=== PATIENT | female | born 2000 | race Caucasian/White ===

== ENCOUNTER 2022-01-09 07:41 | Emergency (ER) | payer MEDICAID ==
[~2022-01-09] VITALS: Ht 167.6 cm; Wt 59.0 kg
--- NOTE | 2022-01-09 08:41 | RAD ---
EXAMINATION: Right ankle radiograph. VIEWS: 3 COMPARISON: None INDICATION:21 years, Female, pain medial aspect after blunt trauma. FINDINGS: No acute fracture, dislocation or subluxation. Ankle mortise and talar dome are intact. No soft tissu e swelling or joint effusion. IMPRESSION: No acute osseous process. Electronically signed by: Maikol Martinez MD (01/09/2022 8:39 AM) [facility]
--- NOTE | 2022-01-09 08:46 | PHYS DOC ---
Past History Past Medical History: No Pertinent History Past Surgical History: No Surgical History Smoking: Cigarettes Additional Smoking Information: Vapes tobacco "many times" throughout the day Alcohol Use: Rarely Drug Use: None General Adult EDM: Chief Complaint: ANKLE PROBLEM HPI: HPI: 21F presenting with right medial ankle pain starting at 2am following blunt trauma with a wooden table leg. Pt was walking when she hit the ankle on the table causing immediate sharp 7/10 pain w/o radiation or swelling. Pt was able to sleep but did occasionally notice pain and when she went to go to work noticed pain with switching between foot pedals prompting her to come to the er. Pt states pain has remained constant w/o swelling and she has not had any issue with ambulation. Denies radiating pain, feeling of joint laxity. Denies prior ankle sprains, fractures or surgeries. Review of Systems: Review of Systems: Constitutional: Denies fever or chills Eyes: Denies redness or eye pain HENT: Denies nasal congestion or sore throat Respiratory: Denies cough or shortness of breath Cardiovascular: Denies chest pain or palpitations GI: Denies abdominal pain, nausea, or vomiting : Denies dysuria or hematuria Musculoskeletal: Endorses right medial ankle pain. Integument: Denies rash or skin lesions Neurologic: Denies headache, focal weakness or sensory changes Complete systems were reviewed and found to be within normal limits, except as documented in this note. Allergies: Allergies: none Physical Exam: PE: Constitutional: Well developed, well nourished, no acute distress, non-toxic appearance HENT: Normocephalic, atraumatic Eyes: Conjunctiva normal, no discharge Neck: Normal range of motion, no tenderness, supple Lungs & Thorax: No respiratory distress, equal chest rise and fall Skin: Warm, dry, no erythema, no rash Extremities: ttp @ right medial malleoli, mild pain with eversion and inversion, no pain with plantar flexion/extension. No right knee pain of foot pain. Gait normal. Neurologic: Alert and oriented X 3, no focal deficits noted Psychologic: Affect normal, judgment normal EKG: EKG: [] Radiology/Procedures: Radiology/Procedures: PROCEDURE: ANKLE RIGHT 3V EXAMINATION: Right ankle radiograph. VIEWS: 3 COMPARISON: None INDICATION:21 years, Female, pain medial aspect after blunt trauma. FINDINGS: No acute fracture, dislocation or subluxation. Ankle mortise and talar dome are intact. No soft tissue swelling or joint effusion. IMPRESSION: No acute osseous process. Electronically signed by: Maikol Martinez MD (01/09/2022 8:39 AM) [facility] Heart Score: C/O Chest Pain: N/A Course & Med Decision Making: Course & Med Decision Making Pertinent Imaging studies reviewed. (See chart for details) Patient presents with HPI and physical exam consistent for right ankle contusion/sprain. Limited neurovascular intact. No clinical signs of compartment syndrome appreciated. X-ray obtained given bony tenderness without acute fracture or dislocation. Symptomatic treatment provided. Ice pack provided. Patient stable for discharge with outpatient follow-up with PCP. Discussed findings and plan with patient, who acknowledges understanding and agreement. Kaylan Disclaimer: Kaylan Disclaimer: This electronic medical record was generated, in whole or in part, using a voice recognition dictation system. Splinting Splinting : Location: Right ankle Pre-Made Type: Darryn Bandage Pre-Proc Neuro Vasc Exam: normal Post-Proc Neuro Vasc Exam: normal, unchanged from pre-exam Departure Departure: Impression: Primary Impression: Ankle pain, right Qualified Codes: M25.571 - Pain in right ankle and joints of right foot Disposition: 01 HOME / SELF CARE / HOMELESS Condition: STABLE Referrals: PCP,NO (PCP) Patient Instructions: Ankle Pain, Contusion, [id number], RICE - Routine Care for Injuries, [id number] Additional Instructions: Ice area of discomfort 20 minutes on the leave off for next 20 minutes. Repeat several times daily for the next few days. Use [id number] ibuprofen and or Tylenol for pain or discomfort. NANCY DAVIS DO Jan 09, 2022 08:46
[2022-01-09 09:04] VITALS: BP 111/88
== END 2022-01-09 09:06 | disposition home or self-care (01) ==
LOC: ER 07:41
DX: M25.571 Pain in right ankle and joints of right foot (principal); F17.210 Nicotine dependence, cigarettes, uncomplicated
CPT/HCPCS: 73610; 99283